=== PATIENT | male | born 1960 | race Caucasian/White ===

== ENCOUNTER 2016-10-03 09:51 | Outpatient (CLI) | payer OTHER ==
[2016-10-03 13:02] LABS: ALBUMIN/GLOBULIN RATIO 1.3 (1.0-2.2); BILIRUBIN,TOTAL 0.7 mg/dL (0.2-1.0); CALCIUM 9.2 mg/dL (8.5-10.3); CREATININE 1.5 mg/dL (0.6-1.2); POTASSIUM 3.8 mmol/L (3.5-5.0); TOTAL PROTEIN 7.4 g/dL (6.7-8.2); URIC ACID 7.7 mg/dL (2.6-7.2)
[2016-10-03 19:14] LABS: BILIRUBIN,URINE NEGATIVE (NEGATIVE)
[2016-10-03 19:28] LABS: UR CULTURE IF IND INDICATED
== END 2016-10-03 09:52 | disposition home or self-care (01) ==
LOC: LAB.WCP 09:51
PROVIDERS: ATTEND Family Medicine
DX: N20.0 Calculus of kidney (principal); R10.9 Unspecified abdominal pain
CPT/HCPCS: 36415; 80053; 81001; 84550; 87086

== ENCOUNTER 2016-10-03 18:10 | Outpatient (CLI) | payer OTHER ==
--- NOTE | 2016-10-04 09:04 | CT Report ---
CT ABDOMEN AND PELVIS WITHOUT CONTRAST: 10/03/2016 CLINICAL INDICATION: Left flank pain, history of kidney stones, history of lithotripsy. TECHNIQUE: Axial CT images of the abdomen and pelvis were obtained without intravenous contrast. COMPARISON: 08/19/2008 FINDINGS: Limited evaluation of the lung bases is unremarkable. ABDOMEN: The liver, spleen, pancreas and adrenal glands appear unremarkable. There is moderate left hydronephrosis and hydroureter, with a left ureter calculus at the level of the L5 vertebral body me asuring 8 x 5 mm. There is a 1 mm nonobstructing calculus in a left lower pole calyx. The right kid te demonstrates two calculi, the larger measuring 5 mm and the smaller measuring 3 mm, without evide nce of hydronephrosis. No bowel dilatation, free gas, or free fluid is present. No abdominal adenop athy is seen. PELVIS: Sigmoid diverticulosis is present, without CT evidence of diverticulitis. The urinary bladd er appears unremarkable. No bladder calculus is seen. No free fluid or adenopathy is present. Osseous structures demonstrate mild degenerative changes. IMPRESSION: MODERATE LEFT HYDRONEPHROSIS AND HYDROURETER, WITH A LEFT URETERIC CALCULUS MEASURING 8 X 5 MM AT THE L5 VERTEBRAL BODY LEVEL. SMALLER NONOBSTRUCTING BILATERAL INTRARENAL CALCULI. In accordance with CT protocol optimization, one or more of the following dose reduction techniques w ere utilized for this exam: automated exposure control, adjustment of mA and/or KV based on patient size, or use of iterative reconstructive technique. JOB #: [id number] EXT JOB #:[id number]
== END 2016-10-03 18:11 | disposition home or self-care (01) ==
LOC: DI 18:10
PROVIDERS: ATTEND Family Medicine
DX: N13.30 Unspecified hydronephrosis (principal); N20.2 Calculus of kidney with calculus of ureter
CPT/HCPCS: 36415; 74176; 80053; 81001; 84550; 87086

== ENCOUNTER 2022-08-20 11:15 | Outpatient (CLI) | payer OTHER ==
[2022-08-20 18:09] LABS: BASOPHILS % (AUTO) 0.4 %; EOSINOPHILS # (AUTO) 0.1 10^3/uL (0.0-0.7); EOSINOPHILS % (AUTO) 1.1 %; HCT - HEMATOCRIT 46.7 % (42.0-52.0); HGB - HEMOGLOBIN 16.1 g/dL (14.0-18.0); LYMPHOCYTES % (AUTO) 13.9 %; MEAN CORPUSCULAR HEMOGLOBIN 31.4 pg (27.0-31.0); MEAN CORPUSCULAR HGB CONC 34.5 g/dL (32.0-36.0); MEAN CORPUSCULAR VOLUME 91.2 fL (80.0-94.0); MEAN PLATELET VOLUME 11.4 fL (7.4-11.4); MONOCYTES # (AUTO) 0.7 10^3/uL (0.0-1.0); MONOCYTES % (AUTO) 9.7 %; NEUTROPHILS # (AUTO) 5.6 10^3/uL (1.5-6.6); NEUTROPHILS % (AUTO) 74.6 %; PLT - PLATELET COUNT 207 10^3/uL (130-450); RED BLOOD COUNT 5.12 10^6/uL (4.70-6.10); RED CELL DISTRIBUTION WIDTH 12.1 % (12.0-15.0); WHITE BLOOD COUNT 7.4 x10^3/uL (4.8-10.8)
[2022-08-20 18:24] LABS: ALBUMIN 4.3 g/dL (3.2-5.5); ALBUMIN/GLOBULIN RATIO 1.2 (1.0-2.2); BILIRUBIN,TOTAL 0.9 mg/dL (0.2-1.0); CALCIUM 9.1 mg/dL (8.5-10.3); CREATININE 2.2 mg/dL (0.6-1.2); POTASSIUM 4.8 mmol/L (3.5-5.0); TOTAL PROTEIN 7.9 g/dL (6.7-8.2)
== END 2022-08-20 11:30 | disposition home or self-care (01) ==
LOC: LAB.N 11:15
PROVIDERS: ATTEND Physician Assistant Medical
DX: N20.9 Urinary calculus, unspecified (principal)
CPT/HCPCS: 36415; 80053; 83690; 85025; 87086

== ENCOUNTER 2022-08-20 14:02 | Outpatient (CLI) | payer OTHER ==
--- NOTE | 2022-08-20 14:55 | CT Report ---
PROCEDURE: ABDOMEN/PELVIS WO INDICATIONS: UROLITHIASIS TECHNIQUE: Noncontrast 5 mm thick sections acquired from the diaphragms to the symphysis. 5 mm coronal and sagi ttal reformats were then performed. For radiation dose reduction, the following was used: automated exposure control, adjustment of mA and/or kV according to patient size. COMPARISON: CT abdomen and pelvis, 10/03/2016. FINDINGS: Image quality: Excellent. Kidneys and ureters: A 9 mm stone is seen in the distal right ureter demonstrating CT density 801 [place] units, causing moderate right hydronephrosis. There is a 4 mm stone proximal left ureter dem onstrating CT density 327 Hounsfield units, causing mild left hydronephrosis. Bilateral nonobstructive renal calculi are present. There is a couple of right renal stone measuring 1-5 mm. 3-4 mm tiny left renal calculi measuring 1 mm. No renal cystic lesion which requires follow up. No solid mass. Bladder: Bladder wall thickness is normal. No calcified bladder stones. No filling defect within the opacified bladder. Prostate is prominent in size. OTHER: Lung bases and heart: Bibasilar scars and atelectasis. Heart size is normal. Small hiatal hernia. Liver: Normal size. No solid mass. Gallbladder and biliary tree: No gallstones. No intrahepatic or intrahepatic biliary dilation. Spleen: No splenomegaly. Pancreas: No pancreatic ductal dilation. Adrenals: No adrenal nodule. Bowel and peritoneum: No bowel distension. No pathologic free fluid. Mild diverticulosis without acut e diverticulitis Lymph nodes: No central or retroperitoneal adenopathy. Vessels: No infrarenal aortic aneurysm. Reproductive organs: Unremarkable. Pelvic lymph nodes: No adenopathy by size criteria. Bones: No aggressive osseous abnormality. Other: No significant ventral or inguinal hernia. IMPRESSION: 1. Moderate right hydronephrosis caused by a 9 mm distal right ureteral stone. 2. Mild left hydronephrosis caused by a 4 mm proximal left ureter stone . 3. Bilateral nonobstructive renal calculi are present. 4. Diverticulosis without diverticulitis. 5. Small hiatal hernia. Reviewed by: Zelda Avila MD on 08/20/2022 2:54 PM PDT Approved by: Zelda Avila MD on 08/20/2022 2:54 PM PDT Station ID: [id number]
== END 2022-08-20 14:03 | disposition home or self-care (01) ==
LOC: DI 14:02
PROVIDERS: ATTEND Physician Assistant Medical
DX: N13.2 Hydronephrosis with renal and ureteral calculous obstruction (principal); K57.90 Diverticulosis of intestine, part unspecified, without perforation or abscess without bleeding; K44.9 Diaphragmatic hernia without obstruction or gangrene

== ENCOUNTER 2024-01-03 07:34 | Outpatient (CLI) | payer OTHER ==
[2024-01-03 07:51] LABS: BASOPHILS % (AUTO) 0.2 %; EOSINOPHILS % (AUTO) 0.1 %; HCT - HEMATOCRIT 48.1 % (42.0-52.0); HGB - HEMOGLOBIN 16.7 g/dL (14.0-18.0); LYMPHOCYTES # (AUTO) 0.9 10^3/uL (1.5-3.5); LYMPHOCYTES % (AUTO) 7.7 %; MEAN CORPUSCULAR HEMOGLOBIN 31.6 pg (27.0-31.0); MEAN CORPUSCULAR HGB CONC 34.7 g/dL (32.0-36.0); MEAN CORPUSCULAR VOLUME 90.9 fL (80.0-94.0); MEAN PLATELET VOLUME 10.4 fL (7.4-11.4); MONOCYTES # (AUTO) 0.6 10^3/uL (0.0-1.0); MONOCYTES % (AUTO) 5.5 %; NEUTROPHILS # (AUTO) 9.8 10^3/uL (1.5-6.6); NEUTROPHILS % (AUTO) 86.1 %; PLT - PLATELET COUNT 191 10^3/uL (130-450); RED BLOOD COUNT 5.29 10^6/uL (4.70-6.10); RED CELL DISTRIBUTION WIDTH 12.2 % (12.0-15.0); WHITE BLOOD COUNT 11.4 x10^3/uL (4.8-10.8)
[2024-01-03 08:02] LABS: ALBUMIN 4.5 g/dL (3.2-5.5); ALBUMIN/GLOBULIN RATIO 1.7 (1.0-2.2); ALKALINE PHOSPHATASE 108 IU/L (42-121); ALT ALANINE AMINOTRANSFERASE 38 IU/L (10-60); AST ASPARTATE AMINOTRANSFERASE 20 IU/L (10-42); BILIRUBIN,TOTAL 0.6 mg/dL (0.2-1.0); BUN - BLOOD UREA NITROGEN 20 mg/dL (6-20); CALCIUM 9.7 mg/dL (8.5-10.3); CARBON DIOXIDE - CO2 24 mmol/L (21-32); CHLORIDE 104 mmol/L (101-111); CHOL/HDL RATIO 5.4 (<5.0); CHOLESTEROL 222 mg/dL; CREATININE 1.1 mg/dL (0.6-1.3); GFR - MDRD 68 (>89); GLUCOSE 154 mg/dL (74-104); HDL CHOLESTEROL 41 mg/dL; LDL CHOLESTEROL,CALCULATED 148 mg/dL; LDL/HDL RATIO 3.6 (<3.6); POTASSIUM 4.1 mmol/L (3.5-4.5); SODIUM 135 mmol/L (135-145); TOTAL PROTEIN 7.1 g/dL (6.4-8.9); TRIGLYCERIDES 165 mg/dL; URIC ACID 5.9 mg/dL (4.4-7.6); VLDL CHOLESTEROL 33 mg/dL
[2024-01-03 08:18] LABS: THYROID STIMULATING HORMONE 0.74 uIU/mL (0.34-5.60)
== END 2024-01-03 07:35 | disposition home or self-care (01) ==
LOC: LAB 07:34
PROVIDERS: ATTEND Physician Assistant
DX: Z00.00 Encounter for general adult medical examination without abnormal findings (principal); Z12.5 Encounter for screening for malignant neoplasm of prostate; M10.9 Gout, unspecified
CPT/HCPCS: 36415; 80053; 80061; 83721; 84153; 84443; 84550; 85025